=== PATIENT | male | born 1950 | race Caucasian/White ===

== ENCOUNTER → 2016-12-28 | Outpatient (CLI) | payer MEDICARE, MEDICAID | LOC: OD 10:10 | PROVIDERS: ATTEND Physician Assistant Medical | DX: R06.02 Shortness of breath (principal) | CPT/HCPCS: 71020 ==

== ENCOUNTER 2017-03-31 16:23 | Observation (INO) | payer MEDICARE, MEDICAID ==
--- NOTE | 2017-03-31 17:04 | ER Document Report ---
ED Medical Screen (RME) - General Chief Complaint: S/S of Possible Stroke Stated Complaint: LEFT ARM WEAKNESS Notes: Patient with L sided weakness that began at 1400. CT, stroke protocol ordered. TRAVEL OUTSIDE OF THE [place] IN LAST 30 DAYS: No - Related Data Allergies/Adverse Reactions: No Known Allergies Allergy (Unverified 11/24/15 08:26) Past Medical History - Past Medical History Cardiac Medical History: Reports: Hx Hypertension Endocrine Medical History: Reports: Hx Diabetes Mellitus Type 1 - controlled, Hx Diabetes Mellitus Type 2 - "pre diabetic" Renal/ Medical History: Denies: Hx Peritoneal Dialysis Review of Systems - Review of Systems Neurological/Psychological: See HPI Physical Exam - Vital signs Vitals: Temp Pulse Resp BP Pulse Ox 98.1 F 57 L 18 187/90 H 98 03/31/17 16:25 03/31/17 16:25 03/31/17 16:25 03/31/17 16:25 03/31/17 16:25 Course - Vital Signs Vital signs: Temp Pulse Resp BP Pulse Ox 98.1 F 57 L 18 187/90 H 98 03/31/17 16:25 03/31/17 16:30 03/31/17 16:30 03/31/17 16:30 03/31/17 16:30
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
--- NOTE | 2017-03-31 17:13 | RADIOLOGY REPORT (SQ) ---
EXAM DESCRIPTION: CHEST SINGLE VIEW COMPLETED DATE/TIME: 03/31/2017 4:57 pm REASON FOR STUDY: L weakness COMPARISON: Chest films 12/28/2016, 03/21/2016 EXAM PARAMETERS: NUMBER OF VIEWS: One view. TECHNIQUE: Single frontal radiographic view of the chest acquired. RADIATION DOSE: NA LIMITATIONS: None. FINDINGS: LUNGS AND PLEURA: No opacities, masses or pneumothorax. No pleural effusion. MEDIASTINUM AND HILAR STRUCTURES: No masses. Contour normal. HEART AND VASCULAR STRUCTURES: Heart normal in size. Normal vasculature. BONES: No acute findings. HARDWARE: None in the chest. OTHER: No other significant finding. IMPRESSION: NO ACUTE RADIOGRAPHIC FINDING IN THE CHEST. TECHNICAL DOCUMENTATION: JOB ID: [id number]
--- NOTE | 2017-03-31 17:56 | ER Document Report ---
ED Neuro Symptoms/Deficit - General Chief Complaint: S/S of Possible Stroke Stated Complaint: LEFT ARM WEAKNESS Time Seen by Provider: 03/31/17 17:06 Notes: Patient says that he was sitting at his computer about 1 PM today when suddenly , his left arm went limp and normal and he was unable to move it. He had to actually be trouble with the right arm and berry picker the left arm. He says that that episode lasted for about 8-10 minutes followed by about a half an hour returning to normal sensation and use of the left upper extremity. Did not involve his head or face. Did not involve his leg. Denies headache or loss of consciousness or any other neurologic symptoms. Denies any change of vision. Later this afternoon, patient had a scheduled appointment with his local perfume maker and when the patient told him about this episode, he advised the patient to come here to be rechecked further. Patient still has no return of any abnormal signs or symptoms. Patient is right-hand dominant. Has never had carpal tunnel syndrome. 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 TRAVEL OUTSIDE OF THE [place] IN LAST 30 DAYS: No - Related Data Allergies/Adverse Reactions: No Known Allergies Allergy (Unverified 11/24/15 08:26) Past Medical History - Social History Smoking Status: Unknown if Ever Smoked Cigarette use (# per day): No Family History: Reviewed & Not Pertinent Patient has suicidal ideation: No Patient has homicidal ideation: No - Past Medical History Cardiac Medical History: Reports: Hx Hypertension Neurological Medical History: Denies: Hx Cerebrovascular Accident, Hx Seizures Endocrine Medical History: Reports: Hx Diabetes Mellitus Type 1 - controlled, Hx Diabetes Mellitus Type 2 - "pre diabetic" Review of Systems - Review of Systems Notes: REVIEW OF SYSTEMS: CONSTITUTIONAL : Denies fever. EENT: Denies eye, ear, nose or mouth or throat pain or other symptoms. CARDIOVASCULAR: Denies chest pain. RESPIRATORY: Denies cough, chest congestion, or shortness of breath. GASTROINTESTINAL: Denies abdominal pain or nausea, vomiting, or diarrhea. GENITOURINARY: Denies difficulty or painful urinating, urinary frequency, blood in urine. MUSCULOSKELETAL: Denies back or neck pain. Denies joint pain or swelling. SKIN: Denies rash or skin lesions. NEUROLOGICAL: Denies LOC or altered mental status. Denies headache. See HPI. ALL OTHER SYSTEMS REVIEWED AND NEGATIVE. Physical Exam - Vital signs Vitals: Temp Pulse Resp BP Pulse Ox 98.1 F 57 L 18 187/90 H 98 03/31/17 16:25 03/31/17 16:25 03/31/17 16:25 03/31/17 16:25 03/31/17 16:25 Interpretation: Normal, Hypertensive - Mild - Notes Notes: PHYSICAL EXAMINATION: GENERAL: Well-appearing, in no acute distress. HEAD: Atraumatic, normocephalic. EYES: Pupils equal round and reactive to light, extraocular movements intact. ENT: oropharynx clear without exudates. Moist mucous membranes. NECK: Normal range of motion, supple. No bruits heard in either side of the neck. LUNGS: Breath sounds clear and equal bilaterally. HEART: Regular rate and rhythm without murmurs. ABDOMEN: Soft, nontender. No guarding or rebound. BACK: No tenderness throughout entire back. EXTREMITIES: Normal range of motion without pain. NEUROLOGICAL: Normal speech, normal gait. Normal sensory, motor, and reflex exams. Awake, alert, and oriented x3. Cranial nerves normal. PSYCH: Normal mood, normal affect. SKIN: Warm, dry, no rashes. Course - Re-evaluation Re-evalutation: 03/31/17 18:[address] Contreras, hospitalist [employer], and he will admit the patient for observation and further workup. - Vital Signs Vital signs: Temp Pulse Resp BP Pulse Ox 98.1 F 57 L 18 187/90 H 98 03/31/17 16:25 03/31/17 16:30 03/31/17 16:30 03/31/17 16:30 03/31/17 16:30 - Laboratory Result Diagrams: 03/31/17 17:54 03/31/17 17:54 - Diagnostic Test Radiology reviewed: Image reviewed, Reports reviewed - CT scan of the brain is normal. - EKG Interpretation by Wy EKG shows normal: Sinus rhythm Rate: Normal Rhythm: NSR Additional EKG results interpreted by me: 03/31/17 18:41 EKG is normal. Discharge - Discharge Clinical Impression: Transient cerebral ischemia Qualifiers: Transient cerebral ischemia type: unspecified Qualified Code(s): G45.9 - Transient cerebral ischemic attack, unspecified Condition: Stable Disposition: ADMITTED OBSERVATION Admitting Provider: Hospitalist Unit Admitted: Telemetry Referrals: EWA RANDLE DO [Primary Care Provider] - Follow up as needed
[2017-03-31 18:10] LABS: ABSOLUTE EOSINOPHILS # (AUTO) 0.1 10^3/uL (0.0-0.6); ABSOLUTE LYMPHOCYTES (AUTO) 0.5 10^3/uL (0.5-4.7); ABSOLUTE MONOCYTES (AUTO) 0.4 10^3/uL (0.1-1.4); ABSOLUTE NEUT (AUTO) 1.4 10^3/uL (1.7-8.2); BASOPHILS % (AUTO) 0.6 % (0-2); EOSINOPHILS % (AUTO) 2.5 % (0-6); HEMATOCRIT 45.7 % (37.9-51.0); HEMOGLOBIN 14.2 g/dL (13.5-17.0); HGB HCT DIFFERENCE -3.1; LYMPHOCYTES % (AUTO) 20.1 % (13-45); MEAN CORPUSCULAR HEMOGLOBIN 26.1 pg (27.0-33.4); MEAN CORPUSCULAR HGB CONC 31.2 g/dL (32.0-36.0); MEAN CORPUSCULAR VOLUME 84 fl (80-97); MONOCYTES % (AUTO) 16.6 % (3-13); RED BLOOD COUNT 5.46 10^6/uL (4.35-5.55); RED CELL DISTRIBUTION WIDTH 14.3 % (11.5-14.0); SEGMENTED NEUTROPHILS % (AUTO) 60.2 % (42-78); WHITE BLOOD COUNT 2.4 10^3/uL (4.0-10.5)
[2017-03-31 18:11] LABS: PROTHROMBIN TIME 15.7 SEC (11.4-15.4)
[2017-03-31 18:12] LABS: PARTIAL THROMBOPLASTIN TIME 28.6 SEC (23.5-35.8)
[2017-03-31 18:27] LABS: ALANINE AMINOTRANSFERASE 28 U/L (21-72); ALKALINE PHOSPHATASE 68 U/L (38-126); ANION GAP 11 (5-19); ASPARTATE AMINO TRANSFERASE 24 U/L (17-59); BILIRUBIN,DIRECT 0.4 mg/dL (0.0-0.4); BILIRUBIN,TOTAL 0.5 mg/dL (0.2-1.3); BLOOD UREA NITROGEN 25 mg/dL (7-20); CALCIUM 9.3 mg/dL (8.4-10.2); CARBON DIOXIDE 25 mmol/L (22-30); CHLORIDE 109 mmol/L (98-107); CREATINE KINASE 23 U/L (55-170); CREATININE RESULT 0.82 mg/dL (0.52-1.25); GLUCOSE 203 mg/dL (75-110); POTASSIUM 4.1 mmol/L (3.6-5.0); SODIUM 144.8 mmol/L (137-145); TOTAL PROTEIN 7.1 g/dL (6.3-8.2)
[2017-03-31 18:38] LABS: CREATINE KINASE MB 0.57 ng/mL (<4.55); TROPONIN I < 0.012 ng/mL
[2017-03-31] MEDS ORDERED: ONDANSETRON HCL INJ/PF 4 MG/2 ML SDV IV PRN (18:41)
[2017-03-31] MEDS ORDERED: ACETAMINOPHEN 650 MG SUPP.RECT PR PRN (18:41)
[2017-03-31] MEDS ORDERED: DOCUSATE SODIUM 100 MG CAPSULE PO PRN (18:41)
[2017-03-31] MEDS ORDERED: DEXTROSE 50%-WATER 25 GM/50 ML DISP.SYRIN IV PRN ×2 (18:45)
[2017-03-31] MEDS ORDERED: GLUCAGON,HUMAN RECOMB 1 MG INJ IM PRN (18:45)
[2017-03-31] MEDS ORDERED: INSULIN REG, HUMAN 100 UNIT/ML 3 ML VIAL (PYX) SUBCUT PRN (18:45)
[2017-03-31] MEDS ORDERED: DEXTROSE 40% GEL 15 GM TUBE PO PRN ×2 (18:45)
[2017-03-31] MEDS ORDERED: METFORMIN HCL 500 MG TABLET PO PRN (18:46)
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
--- NOTE | 2017-03-31 19:19 | RADIOLOGY REPORT (SQ) ---
EXAM DESCRIPTION: CT CERVICAL SPINE WITHOUT COMPLETED DATE/TIME: 03/31/2017 6:58 pm REASON FOR STUDY: Left upper extremity weakness COMPARISON: None. TECHNIQUE: Axial images acquired through the cervical spine without intravenous contrast. Images re viewed with lung, soft tissue and bone windows. Reconstructed coronal and sagittal MPR images review ed. Images stored on PACS. All CT scanners at this facility use dose modulation, iterative reconstruction, and/or weight based d osing when appropriate to reduce radiation dose to as low as reasonably achievable (ALARA). [facility]: Dose Right [facility]: CareDose [facility]: Dose Right [facility]: Teradose 4D [facility]: Spock RADIATION DOSE: 15.85 mGy. LIMITATIONS: None. FINDINGS: ALIGNMENT: Anatomic. MINERALIZATION: Normal. VERTEBRAL BODIES: No fractures or dislocation. DISCS: Multilevel disc space narrowing with osteophytes. FACETS, LATERAL MASSES, POSTERIOR ELEMENTS: Facet arthropathy. No fractures. No dislocation. No ac marilyn findings. HARDWARE: None in the spine. VISUALIZED RIBS: No fractures. LUNG APICES AND SOFT TISSUES: No significant or acute findings. OTHER: No other significant finding. IMPRESSION: CHRONIC DEGENERATIVE CHANGES. NO ACUTE FINDINGS. TECHNICAL DOCUMENTATION: JOB ID: [id number] Quality ID # [id number]: Final reports with documentation of one or more dose reduction techniques (e.g., Au tomated exposure control, adjustment of the mA and/or kV according to patient size, use of iterative reconstruction technique) 2010 [employer]- All Rights Reserved
--- NOTE | 2017-03-31 22:29 | EKG REPORT ---
SEVERITY:- NORMAL ECG - SINUS RHYTHM : Confirmed by: Jun Guzman 31-Mar-2017 22:27:45
[2017-04-01 06:07] LABS: ABSOLUTE BASOPHILS # (AUTO) 0.1 10^3/uL (0.0-0.2); ABSOLUTE EOSINOPHILS # (AUTO) 0.1 10^3/uL (0.0-0.6); ABSOLUTE LYMPHOCYTES (AUTO) 0.5 10^3/uL (0.5-4.7); ABSOLUTE MONOCYTES (AUTO) 0.4 10^3/uL (0.1-1.4); ABSOLUTE NEUT (AUTO) 1.5 10^3/uL (1.7-8.2); BASOPHILS % (AUTO) 2.8 % (0-2); EOSINOPHILS % (AUTO) 3.7 % (0-6); HEMOGLOBIN 14.2 g/dL (13.5-17.0); HGB HCT DIFFERENCE -2.4; LYMPHOCYTES % (AUTO) 20.3 % (13-45); MEAN CORPUSCULAR HEMOGLOBIN 26.3 pg (27.0-33.4); MEAN CORPUSCULAR HGB CONC 31.5 g/dL (32.0-36.0); MEAN CORPUSCULAR VOLUME 84 fl (80-97); MONOCYTES % (AUTO) 14.6 % (3-13); RED BLOOD COUNT 5.39 10^6/uL (4.35-5.55); RED CELL DISTRIBUTION WIDTH 14.3 % (11.5-14.0); SEGMENTED NEUTROPHILS % (AUTO) 58.6 % (42-78); WHITE BLOOD COUNT 2.6 10^3/uL (4.0-10.5)
[2017-04-01 06:14] LABS: CHOLESTEROL 123.17 mg/dL (0-200); Direct HDL 38 mg/dL (>40); TRIGLYCERIDES 51 mg/dL (<150)
[2017-04-01 06:25] LABS: DIRECT LDL 73 mg/dL (<100)
[2017-04-01] MEDS ORDERED: FONDAPARINUX SODIUM INJ 2.5 MG/0.5 ML DISP.SYRIN SUBCUT SCH (08:00)
[2017-04-01] MEDS ORDERED: PROPRANOLOL HCL 20 MG TABLET PO SCH (10:00)
[2017-04-01] MEDS ORDERED: LISINOPRIL 10 MG TABLET PO SCH (10:00)
[2017-04-01] MEDS ORDERED: ASPIRIN 81 MG TABLET, ENT COATED PO SCH (10:00)
[2017-04-01 13:19] VITALS: BP 161/74
--- NOTE | 2017-04-01 15:43 | PDOC DISCHARGE SUMMARY ---
General - Admit/Disc Date/PCP Admission Date/Primary Care Provider: 03/31/17 18:41 EWA RANDLE, Discharge Date: 04/01/17 - Discharge Diagnosis (1) TIA (transient ischemic attack) Is this a current diagnosis for this admission?: Yes (2) Diabetes mellitus Is this a current diagnosis for this admission?: Yes (3) Hypertension Is this a current diagnosis for this admission?: Yes (4) Liver cirrhosis Is this a current diagnosis for this admission?: Yes (5) Hepatitis C Is this a current diagnosis for this admission?: Yes (6) Chronic neck pain Is this a current diagnosis for this admission?: Yes (7) History of Lucas's palsy Is this a current diagnosis for this admission?: Yes - Additional Information Resuscitation Status: Full Code Discharge Diet: Cardiac - low fat, low salt, Diabetic - no concentrated sweets Discharge Activity: Activity As Tolerated, Balance Activity w/Rest Home Medications: Budesonide/Formoterol Fumarate [Symbicort HFA 80-4.5 mcg Inhaler 6.9 gm] 2 puff IH Q12HP PRN 03/31/17 Lisinopril [Prinivil 10 mg Tablet] 10 mg PO DAILY 03/31/17 Metformin HCl [Glucophage] 500 mg PO DAILY 03/31/17 Aspirin [Ecotrin 81 mg EC Tablet] 81 mg PO DAILY tabec 04/01/17 Propranolol HCl [Inderal 20 mg Tablet] 40 mg PO BID #60 tablet 04/01/17 History of Present Illness Patient complains of: LUE weakness History of Present Illness: ANTHONY RAUSCH is a 66 year old male with history of diabetes and hypertension presents to the emergency room because of left upper extremity weakness while working on a computer earlier today that lasted only for 8-10 minutes. No associated swallowing difficulty, slurring of speech, or left lower extremity weakness. There was no doubling of vision noted as well. There is no headache. Patient reports that she has chronic pain in the neck that he goes to a chiropractor and had a recent manipulation done. Symptoms resolved and completely asymptomatic at this time in terms of the weakness. He did have a carotid Doppler and 2D echocardiogram with his burlapper a few weeks ago. Hospital Course Hospital Course: The patient was admitted to telemetry. The patient was started on aspirin. Supplemental oxygen was given. The patient's symptomatologies has already resolved. Patient underwent cervical spine CT showing no acute abnormality or any cord impingement. Patient had a recent echocardiogram showing no significant valvular defect done at Dr. Guzman's office a few weeks ago. Likewise he also has carotid Doppler which did not reveal any hemodynamically significant stenosis. Patient recommended to be on aspirin. Risk and benefits were explained including risk of bleeding as well as risk of stroke with history of diabetes and hypertension. He was likewise educated about blood pressure control. He was on propranolol in the past and this was resumed. He was advised to follow-up with his primary care physician and burlapper. Physical Exam Vital Signs: Temp Pulse Resp BP Pulse Ox 97.9 F 55 L 18 178/86 H 99 04/01/17 11:56 04/01/17 11:56 04/01/17 11:56 04/01/17 11:56 04/01/17 11:56 Intake & Output 03/31/17 04/01/17 04/02/17 06:59 06:59 06:59 Intake Total 210 190 Output Total 2 Balance 210 188 Weight 73.2 kg General appearance: PRESENT: no acute distress, cooperative Head exam: PRESENT: normocephalic Eye exam: PRESENT: EOMI Mouth exam: PRESENT: moist, neck supple Neck exam: ABSENT: JVD Respiratory exam: PRESENT: clear to auscultation penny Cardiovascular exam: PRESENT: RRR. ABSENT: gallop GI/Abdominal exam: PRESENT: normal bowel sounds, soft. ABSENT: diminished bowel sounds, tenderness Extremities exam: ABSENT: pedal edema Neurological exam: PRESENT: alert, awake, oriented to person, oriented to place , oriented to time, oriented to situation Skin exam: PRESENT: dry, warm. ABSENT: cyanosis Results Laboratory Results: 04/01/17 05:22 04/01/17 04/01/17 05:22 05:22 WBC 2.6 L RBC 5.39 Hgb 14.2 Hct 45.0 MCV 84 MCH 26.3 L MCHC 31.5 L RDW 14.3 H Plt Count 104 L Seg Neutrophils % 58.6 Lymphocytes % 20.3 Monocytes % 14.6 H Eosinophils % 3.7 Basophils % 2.8 H Absolute Neutrophils 1.5 L Absolute Lymphocytes 0.5 Absolute Monocytes 0.4 Absolute Eosinophils 0.1 Absolute Basophils 0.1 Triglycerides 51 Cholesterol 123.17 LDL Cholesterol Direct 73 VLDL Cholesterol 10.0 HDL Cholesterol 38 L Impressions: Cervical Spine CT 03/31/17 00:00 IMPRESSION: CHRONIC DEGENERATIVE CHANGES. NO ACUTE FINDINGS. Chest X-Ray 03/31/17 16:41 IMPRESSION: NO ACUTE RADIOGRAPHIC FINDING IN THE CHEST. Head CT 03/31/17 16:41 IMPRESSION: NORMAL BRAIN CT WITHOUT CONTRAST. Qualifiers PATEINT BEING DISCHARGED WITH ANY OF THE FOLLOWING DIAGNOSIS?: No Plan Discharge Plan: Follow-up with primary care physician in 1 week. Follow-up with Dr. Guzman in 1- 2 weeks. Time Spent: Less than 30 Minutes
== END 2017-04-01 14:00 | disposition home or self-care (01) ==
LOC: ER 16:23 → EH 18:41 → UNDOADMOB 18:50 → 3S 21:26
DX: G45.9 Transient cerebral ischemic attack, unspecified (principal); E11.9 Type 2 diabetes mellitus without complications; I10 Essential (primary) hypertension; K74.60 Unspecified cirrhosis of liver; B19.20 Unspecified viral hepatitis C without hepatic coma; G89.29 Other chronic pain; M54.2 Cervicalgia; Z86.69 Personal history of other diseases of the nervous system and sense organs; Z79.84 Long term (current) use of oral hypoglycemic drugs; Z79.82 Long term (current) use of aspirin; Z79.899 Other long term (current) drug therapy; Z96.89 Presence of other specified functional implants; Z79.51 Long term (current) use of inhaled steroids
CPT/HCPCS: 93005; 99285; 36415 ×2; 82553; 82962 ×2; 82550; 85025 ×2; 85610; 85730; 80053; 84484; 83036; 80061; 71010; 70450; 72125; 93010; G0378 ×3; A9270 ×4; J3490; J1815

== ENCOUNTER → 2017-06-28 | Outpatient (CLI) | payer MEDICARE, MEDICAID ==
--- NOTE | 2017-06-28 11:52 | RADIOLOGY REPORT (SQ) ---
EXAM DESCRIPTION: U/S ABDOMEN LIMITED W/O DOP COMPLETED DATE/TIME: 06/28/2017 10:11 am REASON FOR STUDY: CHRONIC VIRAL HEPATITIS C B18.2 CHRONIC VIRAL HEPATITIS C K74.60 UNSPECIFIED CIR RHOSIS OF LIVER COMPARISON: None. TECHNIQUE: Dynamic and static grayscale images acquired of the abdomen and recorded on PACS. Additio nal selected color Doppler and spectral images recorded. LIMITATIONS: Midline bowel gas FINDINGS: PANCREAS: Midline pancreas is unremarkable. LIVER: No masses. Echotexture normal. LIVER VASCULATURE: Normal directional flow of the main portal vein and hepatic veins. GALLBLADDER: Tiny stones in the gallbladder fundus. No gallbladder wall thickening or pericholecysti c fluid ULTRASOUND-DETECTED ADKINS'S SIGN: Negative. INTRAHEPATIC DUCTS AND COMMON DUCT: CBD and intrahepatic ducts normal caliber. No filling defects. INFERIOR VENA CAVA: Normal flow. AORTA: No aneurysm. RIGHT KIDNEY: Normal size. Normal echogenicity. No solid or suspicious masses. 3 cm cyst right mid- pole kidney. No hydronephrosis. No calcifications. PERITONEAL AND RIGHT PLEURAL SPACE: No ascites or effusions. OTHER: No other significant findings. IMPRESSION: Tiny stones in the gallbladder without gallbladder wall thickening or pericholecystic fl uid. No biliary ductal dilatation. TECHNICAL DOCUMENTATION: JOB ID: [id number] [employer]- All Rights Reserved
== END ==
LOC: RAD 09:30
PROVIDERS: ATTEND Internal Medicine Gastroenterology
DX: B18.2 Chronic viral hepatitis C (principal); K74.60 Unspecified cirrhosis of liver
CPT/HCPCS: 76705

== ENCOUNTER 2017-11-20 16:03 | Emergency (ER) | payer MEDICARE, MEDICAID ==
--- NOTE | 2017-11-20 17:34 | ER Document Report ---
ED Medical Screen (RME) - General Chief Complaint: Flu Symptoms Stated Complaint: FLU LIKE SYMPTOMS Time Seen by Provider: 11/20/17 17:29 TRAVEL OUTSIDE OF THE [place] IN LAST 30 DAYS: No - HPI Notes: 11/20/17 17:29 Patient is a 67-year-old male with a history of cirrhosis, hypertension, TIA last year who presents to the ED complaining of generalized weakness, episodes of confusion, dizziness when ambulating, intermittent nausea without vomiting 1 week. Pt has also had an occ SALAS, none currently. Patient states that he has not been running any fevers, nor has he had any cough or congestion. Patient states that there were a couple occasions where he felt like he was going to pass out today. He denies any significant cardiac history otherwise and is not on any blood thinners. Denies any drug allergies. Denies any fever, head injury, neck pain, changes in vision/speech, URI, sore throat, chest pain, palpitations, cough, shortness of breath, wheeze, dyspnea, abdominal pain, vomiting/diarrhea, urinary retention, dysuria, hematuria, loss of control of bowel or bladder, numbness/tingling, muscle paralysis, or rash. I have treated and performed a rapid initial assessment of this patient. A comprehensive ED assessment and evaluation of the patient, analysis of test results and completion of medical decision making process will be conducted by additional ED providers. - Related Data Allergies/Adverse Reactions: No Known Allergies Allergy (Verified 11/20/17 16:04) Past Medical History - Past Medical History Cardiac Medical History: Reports: Hx Hypertension Neurological Medical History: Denies: Hx Cerebrovascular Accident, Hx Seizures Endocrine Medical History: Reports: Hx Diabetes Mellitus Type 1 - controlled, Hx Diabetes Mellitus Type 2 - "pre diabetic" Renal/ Medical History: Denies: Hx Peritoneal Dialysis Psychiatric Medical History: Denies: Hx Depression Physical Exam - Vital signs Vitals: Temp Pulse Resp BP Pulse Ox 98.4 F 60 14 156/86 H 100 11/20/17 16:11 11/20/17 16:11 11/20/17 16:11 11/20/17 16:11 11/20/17 16:11 - Respiratory Respiratory status: No respiratory distress Breath sounds: Normal - Cardiovascular Rhythm: Regular Heart sounds: Normal auscultation Course - Vital Signs Vital signs: Temp Pulse Resp BP Pulse Ox 98.4 F 60 14 156/86 H 100 11/20/17 16:11 11/20/17 16:11 11/20/17 16:11 11/20/17 16:11 11/20/17 16:11
--- NOTE | 2017-11-20 17:59 | EKG REPORT ---
SEVERITY:- OTHERWISE NORMAL ECG - SINUS RHYTHM LOW VOLTAGE IN FRONTAL LEADS : Confirmed by: Vimal Green MD 20-Nov-2017 17:58:18
[2017-11-20 18:07] LABS: A TYPE INFLUENZA AG NEGATIVE (NEGATIVE); B INFLUENZA AG NEGATIVE (NEGATIVE)
[2017-11-20 18:20] LABS: ABSOLUTE EOSINOPHILS # (AUTO) 0.1 10^3/uL (0.0-0.6); ABSOLUTE LYMPHOCYTES (AUTO) 0.4 10^3/uL (0.5-4.7); ABSOLUTE MONOCYTES (AUTO) 0.4 10^3/uL (0.1-1.4); ABSOLUTE NEUT (AUTO) 1.5 10^3/uL (1.7-8.2); BASOPHILS % (AUTO) 0.8 % (0-2); EOSINOPHILS % (AUTO) 3.6 % (0-6); HEMATOCRIT 43.7 % (37.9-51.0); LYMPHOCYTES % (AUTO) 17.2 % (13-45); MEAN CORPUSCULAR HEMOGLOBIN 26.6 pg (27.0-33.4); MEAN CORPUSCULAR HGB CONC 32.1 g/dL (32.0-36.0); MEAN CORPUSCULAR VOLUME 83 fl (80-97); MONOCYTES % (AUTO) 17.2 % (3-13); PLATELET COUNT 112 10^3/uL (150-450); RED BLOOD COUNT 5.28 10^6/uL (4.35-5.55); SEGMENTED NEUTROPHILS % (AUTO) 61.2 % (42-78); TOTAL CELLS COUNTED % (AUTO) 100 %; WHITE BLOOD COUNT 2.4 10^3/uL (4.0-10.5)
[2017-11-20 18:38] LABS: ALANINE AMINOTRANSFERASE 31 U/L (21-72); ALBUMIN 4.4 g/dL (3.5-5.0); ALKALINE PHOSPHATASE 63 U/L (38-126); ANION GAP 12 (5-19); ASPARTATE AMINO TRANSFERASE 24 U/L (17-59); BILIRUBIN,DIRECT 0.2 mg/dL (0.0-0.4); BILIRUBIN,TOTAL 0.5 mg/dL (0.2-1.3); BLOOD UREA NITROGEN 21 mg/dL (7-20); CALCIUM 9.8 mg/dL (8.4-10.2); CARBON DIOXIDE 26 mmol/L (22-30); CHLORIDE 107 mmol/L (98-107); CREATINE KINASE 42 U/L (55-170); GLUCOSE 225 mg/dL (75-110); POTASSIUM 4.1 mmol/L (3.6-5.0); SODIUM 144.8 mmol/L (137-145); TOTAL PROTEIN 7.3 g/dL (6.3-8.2)
[2017-11-20] MEDS ORDERED: NORMAL SALINE 1000 ML 1,000 ML IV PRN (18:53)
[2017-11-20 18:56] LABS: CREATINE KINASE MB 0.74 ng/mL (<4.55)
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
[2017-11-20 18:58] LABS: TROPONIN I < 0.012 ng/mL
--- NOTE | 2017-11-20 19:06 | RADIOLOGY REPORT (SQ) ---
EXAM DESCRIPTION: CHEST SINGLE VIEW COMPLETED DATE/TIME: 11/20/2017 6:31 pm REASON FOR STUDY: weakness COMPARISON: AP chest 03/31/2017, 12/28/2016 EXAM PARAMETERS: NUMBER OF VIEWS: One view. TECHNIQUE: Single frontal radiographic view of the chest acquired. RADIATION DOSE: NA LIMITATIONS: None. FINDINGS: LUNGS AND PLEURA: No opacities, masses or pneumothorax. No pleural effusion. MEDIASTINUM AND HILAR STRUCTURES: No masses. Contour normal. HEART AND VASCULAR STRUCTURES: Heart normal in size. Normal vasculature. BONES: No acute findings. HARDWARE: None in the chest. OTHER: No other significant finding. IMPRESSION: NO ACUTE RADIOGRAPHIC FINDING IN THE CHEST. TECHNICAL DOCUMENTATION: JOB ID: [id number] [employer]- All Rights Reserved
[2017-11-20 19:24] LABS: APPEARANCE,URINE CLEAR; BILIRUBIN,URINE NEGATIVE (NEGATIVE); COLOR,URINE YELLOW; GLUCOSE, URINE 150 mg/dL (NEGATIVE); KETONES,URINE NEGATIVE (NEGATIVE); LEUKOCYTE ESTERASE,URINE NEGATIVE (NEGATIVE); NITRITE,URINE NEGATIVE (NEGATIVE); PROTEIN,URINE NEGATIVE (NEGATIVE); URINE SPECIFIC GRAVITY 1.026
[2017-11-20 21:24] VITALS: BP 172/83
== END 2017-11-20 21:20 | disposition home or self-care (01) ==
LOC: ER 16:03
DX: B34.9 Viral infection, unspecified (principal); R53.1 Weakness; E11.9 Type 2 diabetes mellitus without complications; I10 Essential (primary) hypertension; B19.20 Unspecified viral hepatitis C without hepatic coma; R05 Cough; R42 Dizziness and giddiness; R11.0 Nausea; Z87.820 Personal history of traumatic brain injury
CPT/HCPCS: 93005; 99284; 96360; 36415; 82553; 82550; 85025; 80053; 81001; 84484; 87804; 71045; 93010; J7030

== ENCOUNTER 2018-09-04 08:11 | Emergency (ER) | payer MEDICARE, MEDICAID ==
[2018-09-04 08:21] VITALS: BP 166/85
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
--- NOTE | 2018-09-04 09:26 | RADIOLOGY REPORT (SQ) ---
EXAM DESCRIPTION: TIBIA FIBULA LEFT COMPLETED DATE/TIME: 09/04/2018 8:55 am REASON FOR STUDY: left distal tibia pain s/p injury, + hematoma COMPARISON: None. NUMBER OF VIEWS: Two views. TECHNIQUE: Two radiographic images acquired of the left tibia and fibula to include the knee and ank le in at least one projection. LIMITATIONS: None. FINDINGS: MINERALIZATION: Normal. BONES: No acute fracture or dislocation. No worrisome bone lesions. SOFT TISSUES: No obvious swelling or foreign body. OTHER: No other significant finding. IMPRESSION: NEGATIVE STUDY OF THE LEFT TIBIA AND FIBULA. NO RADIOGRAPHIC EVIDENCE OF ACUTE INJURY. TECHNICAL DOCUMENTATION: JOB ID: [id number] [employer]- All Rights Reserved Reading location - IP/workstation name: [email or web address]
== END 2018-09-04 10:06 | disposition home or self-care (01) ==
LOC: ER 08:11
DX: M79.605 Pain in left leg (principal); W01.10XA Fall on same level from slipping, tripping and stumbling with subsequent striking against unspecified object, initial encounter; I10 Essential (primary) hypertension; E10.9 Type 1 diabetes mellitus without complications
CPT/HCPCS: 99283

== ENCOUNTER → 2018-09-22 | Outpatient (CLI) | payer MEDICARE, MEDICAID ==
--- NOTE | 2018-09-22 17:13 | RADIOLOGY REPORT (SQ) ---
EXAM DESCRIPTION: ELBW BILATERAL 2 VIEWS MIN COMPLETED DATE/TIME: 09/22/2018 5:02 pm REASON FOR STUDY: CHRONIC PAIN OF BILATERAL ELBOW M25.521 PAIN IN RIGHT ELBOW M25.522 PAIN IN LEFT ELBOW COMPARISON: None. NUMBER OF VIEWS: Four views. TECHNIQUE: AP, lateral, and both oblique radiographic images acquired of the right and left elbow. LIMITATIONS: None. FINDINGS: MINERALIZATION: Normal. BONES: No acute fracture or dislocation. No worrisome bone lesions. JOINT: No effusion. SOFT TISSUES: No soft tissue swelling. No foreign body. OTHER: No other significant finding. IMPRESSION: 1. No acute osseous findings. TECHNICAL DOCUMENTATION: JOB ID: [id number] [email or web address]- All Rights Reserved Reading location - IP/workstation name: [email or web address]
== END ==
LOC: OD 16:42
PROVIDERS: ATTEND Family Medicine
DX: M25.521 Pain in right elbow (principal); M25.522 Pain in left elbow

== ENCOUNTER → 2018-10-19 | Outpatient (CLI) | payer MEDICARE, MEDICAID ==
--- NOTE | 2018-10-19 09:39 | RADIOLOGY REPORT (SQ) ---
EXAM DESCRIPTION: U/S ABDOMEN LIMITED W/O DOP COMPLETED DATE/TIME: 10/19/2018 9:19 am REASON FOR STUDY: CHRONIC VIRAL HEPATITIS C B18.2 CHRONIC VIRAL HEPATITIS C K74.60 UNSPECIFIED CIR RHOSIS OF LIVER COMPARISON: 06/28/2017 TECHNIQUE: Dynamic and static grayscale images acquired of the abdomen and recorded on PACS. Additio nal selected color Doppler and spectral images recorded. LIMITATIONS: None. FINDINGS: PANCREAS: No masses. Visualized pancreatic duct normal caliber. LIVER: No masses. Echotexture normal. LIVER VASCULATURE: Normal directional flow of the main portal vein and hepatic veins. GALLBLADDER: Dependent gallstones. No gallbladder wall thickening (2 mm) or pericholecystic fluid. ULTRASOUND-DETECTED ADKINS'S SIGN: Negative. INTRAHEPATIC DUCTS AND COMMON DUCT: CBD and intrahepatic ducts normal caliber. No filling defects. INFERIOR VENA CAVA: Normal flow. AORTA: Mild ectasia of the abdominal aorta measuring up to 2.9 cm maximally. Scattered atheroscleros is. RIGHT KIDNEY: Normal size measuring 11.0 cm. No focal solid mass lesion. 3.0 cm upper pole cyst. No hydronephrosis or nephrolithiasis. PERITONEAL AND RIGHT PLEURAL SPACE: No ascites or effusions. OTHER: No other significant findings. IMPRESSION: 1. Cholelithiasis without secondary evidence of acute cholecystitis. 2. Mild ectasia of the abdominal aorta measuring up to 2.9 cm. See follow-up as below. COMMENT: AAA Size: Follow-up Recommendation 2.6-2.9 cm Every 5 years* *Based upon the Society for Vascular Surgery Guidelines: J Vasc Surg. 2009 Jul;50(4 Suppl):S2-49 *For aortas of maximum diameter of 2.6-2.9 cm meeting the criteria for AAA (?1.5 x proximal normal se gment) TECHNICAL DOCUMENTATION: JOB ID: [id number] [employer]- All Rights Reserved Reading location - IP/workstation name: [email or web address]
== END ==
LOC: RAD 08:27
PROVIDERS: ATTEND Internal Medicine Gastroenterology
DX: B18.2 Chronic viral hepatitis C (principal); K74.60 Unspecified cirrhosis of liver; K80.20 Calculus of gallbladder without cholecystitis without obstruction
CPT/HCPCS: 76705

== ENCOUNTER 2018-11-21 15:50 | Day surgery (SDC) | payer MEDICARE, MEDICAID ==
[~2018-11-21 15:50] MED LIST: DIPHENHYDRAMINE HCL 50 MG/ML VIAL ONE; EPINEPHRINE INJ 1 MG/10 ML DISP.SYRIN ONE; FENTANYL CITRATE INJ/PF 100 MCG/2 ML AMPUL ONE; FLUMAZENIL INJ 0.5 MG/5 ML VIAL ONE; GLUCAGON,HUMAN RECOMB 1 MG INJ ONE; NALOXONE HCL INJ/PF 0.4 MG/1 ML SDV ONE; ONDANSETRON HCL INJ/PF 4 MG/2 ML SDV ONE
[2018-11-21] MEDS: MIDAZOLAM 2 MG/2 ML INJ ONE ×2 (16:17→16:22)
--- NOTE | 2018-11-21 16:44 | Operative Report ---
Operative Report DATE OF SURGERY: 11/21/18 Operative Report: Pre-op diagnosis: History of esophageal varices intolerance to H2 blockers Post-op diagnosis: 1. Antral gastritis 2. Large esophageal varices Surgery: Esophagogastroduodenoscopy with biopsy and variceal rubber banding Medications: Versed 3mg Fentanyl 100mcg IV push Tissue removed: Antral and gastric body biopsy for pathology Procedure: After informed consent obtained from patient, the throat was sprayed with Hurricane and conscious sedation was achieved. The upper endoscope was inserted into the esophagus under direct vision and advanced into the stomach. The duodenum was entered and examined to the second part. Endoscope was then slowly pulled out of the patient as the mucosa was examined into details. Patient tolerated procedure well. Findings Esophagus: There was 3 columns of large varices noted in the distal third of the esophagus. There was no evidence for recent bleeding. 5 rubber bands were then placed over these varices. Z-line at: 42 cm Antrum: Moderate erythema Body: Mild erythema Fundus: Normal Duodenum first part: Normal Duodenum second part: Normal Plan: Await pathology. Start omeprazole, Carafate, and Viscous Lidocaine. Repeat EGD with banding in 3-4 weeks OPERATION: .
[2018-11-21 18:23] VITALS: BP 151/82
== END 2018-11-21 18:00 | disposition home or self-care (01) ==
LOC: END 15:50
PROVIDERS: ATTEND Internal Medicine Gastroenterology
DX: I85.00 Esophageal varices without bleeding (principal); K29.50 Unspecified chronic gastritis without bleeding; K76.6 Portal hypertension; K80.20 Calculus of gallbladder without cholecystitis without obstruction; B19.20 Unspecified viral hepatitis C without hepatic coma; E11.9 Type 2 diabetes mellitus without complications; Z85.820 Personal history of malignant melanoma of skin; Z85.828 Personal history of other malignant neoplasm of skin; Z79.84 Long term (current) use of oral hypoglycemic drugs; Z79.899 Other long term (current) drug therapy; K70.31 Alcoholic cirrhosis of liver with ascites
CPT/HCPCS: 43239; 43244; 82962; 88342 ×2; 88305 ×2; J2250; J3010; J0171; J1200; J1610; J2310; J2405; J3490

== ENCOUNTER 2018-12-19 15:31 | Day surgery (SDC) | payer MEDICARE, MEDICAID ==
[2018-12-19] MEDS ORDERED: ONDANSETRON HCL INJ/PF 4 MG/2 ML SDV ONE (15:42)
[2018-12-19] MEDS ORDERED: DIPHENHYDRAMINE HCL 50 MG/ML VIAL ONE (15:42)
[2018-12-19] MEDS ORDERED: EPINEPHRINE INJ 1 MG/10 ML DISP.SYRIN ONE (15:42)
[2018-12-19] MEDS ORDERED: FENTANYL CITRATE INJ/PF 100 MCG/2 ML AMPUL ONE (15:42)
[2018-12-19] MEDS ORDERED: FLUMAZENIL INJ 0.5 MG/5 ML VIAL ONE (15:42)
[2018-12-19] MEDS ORDERED: NALOXONE HCL INJ/PF 0.4 MG/1 ML SDV ONE (15:42)
[2018-12-19] MEDS ORDERED: MIDAZOLAM 2 MG/2 ML INJ ONE (15:42)
[2018-12-19] MEDS ORDERED: GLUCAGON,HUMAN RECOMB 1 MG INJ ONE (15:43)
--- NOTE | 2018-12-19 17:35 | Operative Report ---
Operative Report DATE OF SURGERY: 12/19/18 Operative Report: Pre-op diagnosis: Cirrhosis with history of esophageal varices Post-op diagnosis: 1. Antral gastritis 2. Esophageal varices Surgery: Esophagogastroduodenoscopy with biopsy and variceal rubber banding Medications: Versed 2mg Fentanyl 100mcg IV push Tissue removed: Antral biopsy for pathology Procedure: After informed consent obtained from patient, the throat was sprayed with Hurricane and conscious sedation was achieved. The upper endoscope was inserted into the esophagus under direct vision and advanced into the stomach. The duodenum was entered and examined to the second part. Endoscope was then slowly pulled out of the patient as the mucosa was examined into details. Patient tolerated procedure well. Findings Esophagus: Small varices were noted in the distal third of the esophagus with areas of scarring. 5 rubber bands were applied Antrum: Mild erythema Body: Normal Fundus: Normal Duodenum first part: Normal Duodenum second part: Normal Plan: Await pathology. Omeprazole 20 mg daily. Carafate and Viscous Lidocaine. Repeat EGD in 6 months OPERATION: .
[2018-12-19 18:25] LABS: HEMATOCRIT 41.5 % (37.9-51.0); HEMOGLOBIN 13.6 g/dL (13.5-17.0); MEAN CORPUSCULAR HEMOGLOBIN 26.9 pg (27.0-33.4); MEAN CORPUSCULAR HGB CONC 32.7 g/dL (32.0-36.0); MEAN CORPUSCULAR VOLUME 82 fl (80-97); PLATELET COUNT 103 10^3/uL (150-450); RED BLOOD COUNT 5.05 10^6/uL (4.35-5.55); RED CELL DISTRIBUTION WIDTH 14.5 % (11.5-14.0); WHITE BLOOD COUNT 2.1 10^3/uL (4.0-10.5)
[2018-12-19 18:29] LABS: INTERNATIONAL RATION (INR) 1.22; PROTHROMBIN TIME 16.1 SEC (11.4-15.4)
[2018-12-19 18:35] VITALS: BP 172/82
[2018-12-19 19:02] LABS: ALANINE AMINOTRANSFERASE 27 U/L (21-72); ALBUMIN 4.2 g/dL (3.5-5.0); ALKALINE PHOSPHATASE 52 U/L (38-126); ANION GAP 8 (5-19); ASPARTATE AMINO TRANSFERASE 27 U/L (17-59); BILIRUBIN,DIRECT 0.3 mg/dL (0.0-0.4); BILIRUBIN,TOTAL 1.2 mg/dL (0.2-1.3); BLOOD UREA NITROGEN 17 mg/dL (7-20); CALCIUM 9.1 mg/dL (8.4-10.2); CARBON DIOXIDE 28 mmol/L (22-30); CHLORIDE 106 mmol/L (98-107); GLUCOSE 92 mg/dL (75-110); POTASSIUM 4.1 mmol/L (3.6-5.0); SODIUM 142.2 mmol/L (137-145); TOTAL PROTEIN 6.8 g/dL (6.3-8.2)
== END 2018-12-19 18:25 | disposition home or self-care (01) ==
LOC: END 15:31
PROVIDERS: ATTEND Internal Medicine Gastroenterology
DX: I85.00 Esophageal varices without bleeding (principal); K29.70 Gastritis, unspecified, without bleeding
CPT/HCPCS: 43239; 43244; 36415; 82962; 85027; 85610; 80076; 80048; 88342 ×2; 88305 ×2; J2250; J3010; J0171; J1200; J1610; J2310; J2405; J3490

== ENCOUNTER 2019-01-11 08:21 | Observation (INO) | payer MEDICARE, MEDICAID ==
[2019-01-11] MEDS ORDERED: ASPIRIN 81 MG TABLET, CHEWABLE PO ONE (08:27)
[2019-01-11 09:13] LABS: HEMATOCRIT 41.7 % (37.9-51.0); HEMOGLOBIN 13.7 g/dL (13.5-17.0); MEAN CORPUSCULAR HEMOGLOBIN 26.7 pg (27.0-33.4); MEAN CORPUSCULAR HGB CONC 32.8 g/dL (32.0-36.0); MEAN CORPUSCULAR VOLUME 81 fl (80-97); PLATELET COUNT 105 10^3/uL (150-450); RED BLOOD COUNT 5.13 10^6/uL (4.35-5.55); RED CELL DISTRIBUTION WIDTH 14.6 % (11.5-14.0)
[2019-01-11 09:42] LABS: ALANINE AMINOTRANSFERASE 33 U/L (21-72); ALBUMIN 3.7 g/dL (3.5-5.0); ALKALINE PHOSPHATASE 59 U/L (38-126); ANION GAP 7 (5-19); ASPARTATE AMINO TRANSFERASE 25 U/L (17-59); BILIRUBIN,DIRECT 0.1 mg/dL (0.0-0.4); BLOOD UREA NITROGEN 23 mg/dL (7-20); CALCIUM 9.2 mg/dL (8.4-10.2); CARBON DIOXIDE 28 mmol/L (22-30); CHLORIDE 107 mmol/L (98-107); CREATINE KINASE 29 U/L (55-170); GLUCOSE 108 mg/dL (75-110); LIPASE 80.2 U/L (23-300); TOTAL PROTEIN 6.6 g/dL (6.3-8.2)
[2019-01-11 09:49] LABS: ABSOLUTE LYMPHOCYTES# (MANUAL) 0.6 10^3/uL (0.5-4.7); ABSOLUTE MONOCYTES # (MANUAL) 0.2 10^3/uL (0.1-1.4); ABSOLUTE NEUTROPHILS# (MANUAL) 1.2 10^3/uL (1.7-8.2); BASOPHILS % (MANUAL) 0 % (0-2); EOSINOPHILS % (MANUAL) 0 % (0-6); LYMPHOCYTES % (MANUAL) 28 % (13-45); MONOCYTES % (MANUAL) 12 % (3-13); SEGMENTED NEUTROPHILS % (MAN) 60 % (42-78); TOTAL CELLS COUNTED 50
[2019-01-11 09:50] LABS: ANISOCYTOSIS SLIGHT; OVALOCYTES 1+; PLATELET COMMENT DECREASED; POIKILOCYTOSIS 1+; POLYCHROMASIA SLIGHT
[2019-01-11 10:05] LABS: CREATINE KINASE MB 0.97 ng/mL (<4.55)
[2019-01-11] MEDS ORDERED: NORMAL SALINE 1000 ML 1,000 ML IV ONE (10:08)
[2019-01-11 10:12] LABS: TROPONIN I < 0.012 ng/mL
[2019-01-11 10:14] LABS: VENOUS BLOOD BASE EXCESS 1.9 mmol/L; VENOUS BLOOD HCO3 25.7 mmol/L (20-32); VENOUS BLOOD PCO2 37.6 mmHg (35-63); VENOUS BLOOD PH 7.45 (7.30-7.42)
--- NOTE | 2019-01-11 10:20 | RADIOLOGY REPORT (SQ) ---
EXAM DESCRIPTION: CT HEAD WITHOUT COMPLETED DATE/TIME: 01/11/2019 9:35 am REASON FOR STUDY: weakness COMPARISON: 03/31/2017 TECHNIQUE: Axial images acquired through the brain without intravenous contrast. Images reviewed wi th bone, brain and subdural windows. Additional sagittal and coronal reconstructions were generated. Images stored on PACS. All CT scanners at this facility use dose modulation, iterative reconstruction, and/or weight based d osing when appropriate to reduce radiation dose to as low as reasonably achievable (ALARA). [facility]: Dose Right [facility]: CareDose [facility]: Dose Right [facility]: Teradose 4D [facility]: [employer] Technologies RADIATION DOSE: CT Rad equipment meets quality standard of care and radiation dose reduction techniq ues were employed. CTDIvol: 53.2 mGy. DLP: 1070 mGy-cm. mGy. LIMITATIONS: None. FINDINGS: VENTRICLES: Normal size and contour. CEREBRUM: No masses. No hemorrhage. No midline shift. No evidence for acute infarction. Normal gra y/white matter differentiation. No areas of low density in the white matter. CEREBELLUM: No masses. No hemorrhage. No alteration of density. No evidence for acute infarction. EXTRAAXIAL SPACES: No fluid collections. No masses. ORBITS AND GLOBE: No intra- or extraconal masses. Normal contour of globe without masses. CALVARIUM: No fracture. PARANASAL SINUSES: No fluid or mucosal thickening. SOFT TISSUES: No mass or hematoma. OTHER: No other significant finding. IMPRESSION: No acute intracranial pathology. EVIDENCE OF ACUTE STROKE: NO. COMMENT: Quality ID # [id number]: Final reports with documentation of one or more dose reduction techniques (e.g., Automated exposure control, adjustment of the mA and/or kV according to patient size, use of iterative reconstruction technique) TECHNICAL DOCUMENTATION: JOB ID: [id number] [employer]- All Rights Reserved Reading location - IP/workstation name: [email or web address]
--- NOTE | 2019-01-11 10:32 | RADIOLOGY REPORT (SQ) ---
EXAM DESCRIPTION: CHEST SINGLE VIEW COMPLETED DATE/TIME: 01/11/2019 9:46 am REASON FOR STUDY: weakness COMPARISON: 03/21/2018 EXAM PARAMETERS: NUMBER OF VIEWS: One view. TECHNIQUE: Single frontal radiographic view of the chest acquired. RADIATION DOSE: NA LIMITATIONS: None. FINDINGS: LUNGS AND PLEURA: No opacities, masses or pneumothorax. No pleural effusion. MEDIASTINUM AND HILAR STRUCTURES: No masses. Contour normal. HEART AND VASCULAR STRUCTURES: Heart normal in size. Normal vasculature. BONES: No acute findings. HARDWARE: None in the chest. OTHER: No other significant finding. IMPRESSION: No acute abnormality of the lungs in AP projection. TECHNICAL DOCUMENTATION: JOB ID: [id number] [employer]- All Rights Reserved Reading location - IP/workstation name: [email or web address]
[2019-01-11 10:59] LABS: APPEARANCE,URINE CLEAR; BILIRUBIN,URINE NEGATIVE (NEGATIVE); COLOR,URINE YELLOW; GLUCOSE, URINE NEGATIVE (NEGATIVE); KETONES,URINE NEGATIVE (NEGATIVE); LEUKOCYTE ESTERASE,URINE NEGATIVE (NEGATIVE); NITRITE,URINE NEGATIVE (NEGATIVE); PROTEIN,URINE NEGATIVE (NEGATIVE); URINE SPECIFIC GRAVITY 1.019; UROBILINOGEN,URINE NEGATIVE mg/dL (<2.0)
[2019-01-11 11:10] VITALS: BP 172/86
[2019-01-11 11:14] LABS: URINE AMPHETAMINES SCREEN NEGATIVE; URINE BARBITURATES SCREEN NEGATIVE; URINE BENZODIAZEPINES SCREEN NEGATIVE; URINE COCAINE SCREEN NEGATIVE; URINE MARIJUANA (THC) SCREEN NEGATIVE; URINE METHADONE SCREEN NEGATIVE; URINE PHENCYCLIDINE SCREEN NEGATIVE
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
[2019-01-11] MEDS ORDERED: ACETAMINOPHEN 325 MG TABLET PO PRN (12:35)
[2019-01-11] MEDS ORDERED: ONDANSETRON HCL INJ/PF 4 MG/2 ML SDV IV PRN (12:35)
[2019-01-11] MEDS ORDERED: ENOXAPARIN SODIUM INJ 40 MG/0.4 ML DISP.SYRIN SUBCUT SCH (12:45)
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
--- NOTE | 2019-01-11 14:48 | EKG REPORT ---
SEVERITY:- OTHERWISE NORMAL ECG - SINUS RHYTHM LOW VOLTAGE IN FRONTAL LEADS : Confirmed by: Caryn Palacios MD 11-Jan-2019 14:47:34
--- NOTE | 2019-01-11 16:53 | Left Against Medical Advice ---
Against Medical Advice Admission Date/Time: 01/11/19 13:06 Primary Care Provider: EWA RADNLE DO Date of Patient [place]: 01/11/19 - Diagnosis: (1) TIA (transient ischemic attack) Is this a current diagnosis for this admission?: Yes (2) Hypertension Is this a current diagnosis for this admission?: Yes (3) Type 2 diabetes mellitus Is this a current diagnosis for this admission?: Yes (4) Cirrhosis of liver Is this a current diagnosis for this admission?: Yes - Summary: Summary: ANTHONY RAUSCH is a 68 year old male patient with past medical history of hypertension, type 2 diabetes mellitus, COPD, history of hep C which is cured with Harvoni, cirrhosis of the liver and history of alcoholism presented with chief complaint of weakness and difficulty speech. 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 He also endorses weakness and state of disorientation. Patient reports that he had had similar attack in the past. Patient states that he is not compliant with his blood pressure medications. Patient denies any headache, dizziness, blurry vision or any seizure activity. No history of fever, chills, chest pain, cough, palpitation or diaphoresis. His blood works are unremarkable except for leukopenia with WBC count of 2. He CT scan is negative for acute stroke. I admitted this patient for observation as a case of TIA to rule out acute ischemic stroke. About an hour after admission patient decided to sign out AGAINST MEDICAL ADVICE. He states he has important things to do at home so he wants to go home. I myself and the nurse in charge of him advised him to stay behind by mentioning that he has history of previous recurrent TIA and that he has harbingers of major strokes. Despite our advice patient left AGAINST MEDICAL ADVICE.
[2019-01-11] MEDS ORDERED: FAMOTIDINE 20 MG TABLET PO SCH (22:00)
[2019-01-12 10:21] LABS: PATH REVIEW PATHOLOGIST REVIEWED
== END 2019-01-11 14:14 | disposition left against medical advice (07) ==
LOC: ER 08:21 → EH 13:06
PROVIDERS: ADMIT Internal Medicine; ATTEND Internal Medicine
DX: G45.9 Transient cerebral ischemic attack, unspecified (principal); I10 Essential (primary) hypertension; E11.9 Type 2 diabetes mellitus without complications; K70.30 Alcoholic cirrhosis of liver without ascites; D72.819 Decreased white blood cell count, unspecified; D69.6 Thrombocytopenia, unspecified; F10.21 Alcohol dependence, in remission; Z86.19 Personal history of other infectious and parasitic diseases; Z91.14 Patient's other noncompliance with medication regimen; Z53.21 Procedure and treatment not carried out due to patient leaving prior to being seen by health care provider; Z86.73 Personal history of transient ischemic attack (TIA), and cerebral infarction without residual deficits; Z87.820 Personal history of traumatic brain injury; Z87.891 Personal history of nicotine dependence; Z98.890 Other specified postprocedural states
CPT/HCPCS: 93005; 99285; 96360; 36415; 82553; 82962; 80307 ×2; 82140; 82550; 83690; 85025; 80053; 81001; 84484; 82803; 71045; 70450; 93010; A9270; J3490; J7030

== ENCOUNTER → 2019-05-31 | Outpatient (CLI) | payer MEDICARE, MEDICAID ==
--- NOTE | 2019-05-31 15:42 | RADIOLOGY REPORT (SQ) ---
EXAM DESCRIPTION: U/S ABDOMEN LIMITED W/O DOP COMPLETED DATE/TIME: 05/31/2019 3:25 pm REASON FOR STUDY: R10.11 RIGHT UPPER QUADRANT PAIN K76.6 PORTAL HYPERTENSION R10.11 RIGHT UPPER JUANPABLO DRANT PAIN K74.69 OTHER CIRRHOSIS OF LIVER COMPARISON: 10/19/2018 TECHNIQUE: Dynamic and static grayscale images acquired of the abdomen and recorded on PACS. Additio nal selected color Doppler and spectral images recorded. LIMITATIONS: None. FINDINGS: PANCREAS: No masses. Visualized pancreatic duct normal caliber. LIVER: No masses. Echotexture normal. LIVER VASCULATURE: Normal directional flow of the main portal vein and hepatic veins. GALLBLADDER: Some small gallstones are present. There is no wall thickening or pericholecystic fluid . ULTRASOUND-DETECTED ADKINS'S SIGN: Negative. INTRAHEPATIC DUCTS AND COMMON DUCT: CBD and intrahepatic ducts normal caliber. No filling defects. INFERIOR VENA CAVA: Not imaged. AORTA: No aneurysm. RIGHT KIDNEY: Normal size, 11.6 cm. Normal echogenicity. There are some small cysts. No solid or suspicious masses. No hydronephrosis. No calcifications. PERITONEAL AND RIGHT PLEURAL SPACE: No ascites or effusions. OTHER: No other significant findings. IMPRESSION: Cholelithiasis. There is no evidence of acute cholecystitis. TECHNICAL DOCUMENTATION: JOB ID: [id number]- All Rights Reserved Reading location - IP/workstation name: [email or web address]
== END ==
LOC: RAD 14:29
PROVIDERS: ATTEND Internal Medicine Gastroenterology
DX: K76.6 Portal hypertension (principal); R10.11 Right upper quadrant pain
CPT/HCPCS: 76705

== ENCOUNTER → 2019-05-31 | Outpatient (CLI) | payer MEDICARE, MEDICAID ==
[2019-05-31 14:33] LABS: HEMATOCRIT 39.1 % (37.9-51.0); HEMOGLOBIN 12.6 g/dL (13.5-17.0); MEAN CORPUSCULAR HEMOGLOBIN 26.2 pg (27.0-33.4); MEAN CORPUSCULAR HGB CONC 32.3 g/dL (32.0-36.0); MEAN CORPUSCULAR VOLUME 81 fl (80-97); PLATELET COUNT 112 10^3/uL (150-450); RED BLOOD COUNT 4.82 10^6/uL (4.35-5.55); RED CELL DISTRIBUTION WIDTH 13.6 % (11.5-14.0); WHITE BLOOD COUNT 2.2 10^3/uL (4.0-10.5)
[2019-05-31 14:40] LABS: INTERNATIONAL RATION (INR) 1.23; PROTHROMBIN TIME 15.6 SEC (11.4-15.4)
[2019-05-31 14:53] LABS: ALKALINE PHOSPHATASE 67 U/L (38-126); ANION GAP 7 (5-19); ASPARTATE AMINO TRANSFERASE 23 U/L (17-59); BILIRUBIN,DIRECT 0.2 mg/dL (0.0-0.4); BILIRUBIN,TOTAL 0.3 mg/dL (0.2-1.3); BLOOD UREA NITROGEN 26 mg/dL (7-20); CALCIUM 9.6 mg/dL (8.4-10.2); CARBON DIOXIDE 30 mmol/L (22-30); CHLORIDE 105 mmol/L (98-107); GLUCOSE 154 mg/dL (75-110); TOTAL PROTEIN 6.7 g/dL (6.3-8.2)
== END ==
LOC: LAB 14:04
PROVIDERS: ATTEND Internal Medicine Gastroenterology
DX: B18.2 Chronic viral hepatitis C (principal); R10.12 Left upper quadrant pain
CPT/HCPCS: 36415; 80048; 80076; 83690; 85027; 85610

== ENCOUNTER 2019-07-24 15:39 | Day surgery (SDC) | payer MEDICARE, MEDICAID ==
[~2019-07-24 15:39] MED LIST changes: -EPINEPHRINE INJ 1 MG/10 ML DISP.SYRIN ONE; -FLUMAZENIL INJ 0.5 MG/5 ML VIAL ONE; -GLUCAGON,HUMAN RECOMB 1 MG INJ ONE; +MIDAZOLAM 2 MG/2 ML INJ ONE; -NALOXONE HCL INJ/PF 0.4 MG/1 ML SDV ONE
[2019-07-24] MEDS ORDERED: GLUCAGON,HUMAN RECOMB 1 MG INJ ONE (15:40)
[2019-07-24] MEDS ORDERED: FLUMAZENIL INJ 0.5 MG/5 ML VIAL ONE (15:40)
[2019-07-24] MEDS ORDERED: NALOXONE HCL INJ/PF 0.4 MG/1 ML SDV ONE (15:40)
[2019-07-24] MEDS ORDERED: EPINEPHRINE INJ 1 MG/10 ML DISP.SYRIN ONE (15:40)
--- NOTE | 2019-07-24 17:32 | Operative Report ---
Operative Report DATE OF SURGERY: 07/24/19 Operative Report: Pre-op diagnosis: Cirrhosis with history of esophageal varices Post-op diagnosis: Moderate size distal esophageal varices Surgery: Esophagogastroduodenoscopy with biopsy and variceal rubber banding Medications: Versed 2mg Fentanyl 100mcg IV push Tissue removed: Antral and gastric body biopsy for pathology Procedure: After informed consent obtained from patient, the throat was sprayed with Hurricane and conscious sedation was achieved. The upper endoscope was inserted into the esophagus under direct vision and advanced into the stomach. The duodenum was entered and examined to the second part. Endoscope was then slowly pulled out of the patient as the mucosa was examined into details. Patient tolerated procedure well. Findings Esophagus: 2 columns of small to moderate-sized varices were noted in the distal esophagus consistent with a grade F2. 4 rubber bands were applied Antrum: Normal Body: Normal Fundus: Normal Duodenum first part: Normal Duodenum second part: Normal Plan: Await pathology. Repeat EGD in 6 months OPERATION: .
[2019-07-24 18:16] VITALS: BP 135/72
== END 2019-07-24 18:15 | disposition home or self-care (01) ==
LOC: END 15:39
PROVIDERS: ATTEND Internal Medicine Gastroenterology
DX: K29.50 Unspecified chronic gastritis without bleeding (principal); I85.00 Esophageal varices without bleeding; K74.60 Unspecified cirrhosis of liver; B18.2 Chronic viral hepatitis C; K76.6 Portal hypertension; Z79.84 Long term (current) use of oral hypoglycemic drugs; Z79.899 Other long term (current) drug therapy; Z86.73 Personal history of transient ischemic attack (TIA), and cerebral infarction without residual deficits
CPT/HCPCS: 43239; 82962; 88342 ×2; 88305 ×2; J2250; J3010; 43235; J0171; J1200; J1610; J2310; J2405; J3490

== ENCOUNTER 2019-10-12 09:24 | Emergency (ER) | payer MEDICARE, MEDICAID ==
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
[2019-10-12 14:52] VITALS: BP 113/70
== END 2019-10-12 14:49 | disposition home or self-care (01) ==
LOC: ER 09:24
DX: K64.8 Other hemorrhoids (principal); K76.9 Liver disease, unspecified; Z79.899 Other long term (current) drug therapy; I10 Essential (primary) hypertension; J44.9 Chronic obstructive pulmonary disease, unspecified; E11.9 Type 2 diabetes mellitus without complications
CPT/HCPCS: 99282

== ENCOUNTER → 2019-12-06 | Outpatient (CLI) | payer MEDICARE, MEDICAID ==
--- NOTE | 2019-12-06 11:17 | RADIOLOGY REPORT (SQ) ---
EXAM DESCRIPTION: U/S ABDOMEN LIMITED W/O DOP COMPLETED DATE/TIME: 12/06/2019 10:54 am REASON FOR STUDY: K74.69 OTHER CIRRHOSIS OF LIVER K74.69 OTHER CIRRHOSIS OF LIVER COMPARISON: None. TECHNIQUE: Dynamic and static grayscale images acquired of the abdomen and recorded on PACS. Additio nal selected color Doppler and spectral images recorded. LIMITATIONS: None. FINDINGS: PANCREAS: No masses. Visualized pancreatic duct normal caliber. LIVER: Normal size. Diffuse coarse hepatic echotexture. No masses or dilated ducts. LIVER VASCULATURE: Normal directional flow of the main portal vein and hepatic veins. GALLBLADDER: No stones. Normal wall thickness. No pericholecystic fluid. ULTRASOUND-DETECTED ADKINS'S SIGN: Negative. INTRAHEPATIC DUCTS AND COMMON DUCT: CBD and intrahepatic ducts normal caliber. No filling defects. INFERIOR VENA CAVA: Normal flow. AORTA: No aneurysm. RIGHT KIDNEY: Normal size. There are 2 cysts measuring up to 3.2 cm. No solid or suspicious masses . No hydronephrosis. No calcifications. PERITONEAL AND RIGHT PLEURAL SPACE: No ascites or effusions. OTHER: No other significant findings. IMPRESSION: Cirrhosis. No ascites. TECHNICAL DOCUMENTATION: JOB ID: [id number] 2010 [employer]- All Rights Reserved Reading location - IP/workstation name: [email or web address]
== END ==
LOC: WI 10:05
PROVIDERS: ATTEND Internal Medicine Gastroenterology
DX: K74.69 Other cirrhosis of liver (principal)
CPT/HCPCS: 76705

== ENCOUNTER 2019-12-24 10:54 | Observation (INO) | payer MEDICARE, MEDICAID ==
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
--- NOTE | 2019-12-24 11:18 | ER Document Report ---
Doctor's Note Notes: 12/24/19 11:17 Radiologist called, CT negative for acute stroke.
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
--- NOTE | 2019-12-24 11:36 | RADIOLOGY REPORT (SQ) ---
EXAM DESCRIPTION: CHEST SINGLE VIEW COMPLETED DATE/TIME: 12/24/2019 11:24 am REASON FOR STUDY: left arm numbness, altered mental status COMPARISON: 01/11/2019 EXAM PARAMETERS: NUMBER OF VIEWS: One view. TECHNIQUE: Single frontal radiographic view of the chest acquired. RADIATION DOSE: NA LIMITATIONS: None. FINDINGS: LUNGS AND PLEURA: No opacities, masses or pneumothorax. No pleural effusion. MEDIASTINUM AND HILAR STRUCTURES: No masses. Contour normal. HEART AND VASCULAR STRUCTURES: Heart normal in size. Normal vasculature. BONES: No acute findings. HARDWARE: None in the chest. OTHER: No other significant finding. IMPRESSION: NO ACUTE RADIOGRAPHIC FINDING IN THE CHEST. TECHNICAL DOCUMENTATION: JOB ID: [id number] 2010 [employer]- All Rights Reserved Reading location - IP/workstation name: [email or web address]
[2019-12-24 11:44] LABS: ABSOLUTE EOSINOPHILS # (AUTO) 0.1 10^3/uL (0.0-0.6); ABSOLUTE LYMPHOCYTES (AUTO) 0.5 10^3/uL (0.5-4.7); ABSOLUTE MONOCYTES (AUTO) 0.4 10^3/uL (0.1-1.4); ABSOLUTE NEUT (AUTO) 2.1 10^3/uL (1.7-8.2); BASOPHILS % (AUTO) 0.6 % (0-2); EOSINOPHILS % (AUTO) 4.7 % (0-6); HEMATOCRIT 42.9 % (37.9-51.0); HEMOGLOBIN 14.1 g/dL (13.5-17.0); LYMPHOCYTES % (AUTO) 14.9 % (13-45); MEAN CORPUSCULAR HEMOGLOBIN 27.4 pg (27.0-33.4); MEAN CORPUSCULAR HGB CONC 32.9 g/dL (32.0-36.0); MEAN CORPUSCULAR VOLUME 83 fl (80-97); MONOCYTES % (AUTO) 13.5 % (3-13); PLATELET COUNT 106 10^3/uL (150-450); RED BLOOD COUNT 5.16 10^6/uL (4.35-5.55); RED CELL DISTRIBUTION WIDTH 14.2 % (11.5-14.0); SEGMENTED NEUTROPHILS % (AUTO) 66.3 % (42-78); TOTAL CELLS COUNTED % (AUTO) 100 %; WHITE BLOOD COUNT 3.1 10^3/uL (4.0-10.5)
[2019-12-24 11:46] LABS: INTERNATIONAL RATION (INR) 1.29
[2019-12-24 11:47] LABS: PARTIAL THROMBOPLASTIN TIME 28.7 SEC (23.5-35.8)
[2019-12-24 11:49] LABS: PROTHROMBIN TIME 16.2 SEC (11.4-15.4)
[2019-12-24 12:07] LABS: ALBUMIN 4.5 g/dL (3.5-5.0); ALKALINE PHOSPHATASE 65 U/L (38-126); ANION GAP 8 (5-19); ASPARTATE AMINO TRANSFERASE 32 U/L (17-59); BILIRUBIN,TOTAL 1.2 mg/dL (0.2-1.3); BLOOD UREA NITROGEN 27 mg/dL (7-20); CALCIUM 9.4 mg/dL (8.4-10.2); CARBON DIOXIDE 31 mmol/L (22-30); CHLORIDE 104 mmol/L (98-107); CREATINE KINASE 48 U/L (55-170); GLUCOSE 140 mg/dL (75-110); TOTAL PROTEIN 7.4 g/dL (6.3-8.2)
[2019-12-24 12:19] LABS: CREATINE KINASE MB 2.56 ng/mL (<4.55)
[2019-12-24 12:20] LABS: TROPONIN I < 0.012 ng/mL
--- NOTE | 2019-12-24 12:57 | RADIOLOGY REPORT (SQ) ---
EXAM DESCRIPTION: CTA HEAD COMPLETED DATE/TIME: 12/24/2019 12:33 pm REASON FOR STUDY: CVA? COMPARISON: Same day CT TECHNIQUE: Post IV contrast scanning, thin section axial imaging through the brain to evaluate the a rterial structures. Source and MIP images are saved and reviewed on PACS. Advanced 3D imaging as volume-rendering, MIPs, SSD performed? yes All CT scanners at this facility use dose modulation, iterative reconstruction, and/or weight based d osing when appropriate to reduce radiation dose to as low as reasonably achievable (ALARA). [facility]: Dose Right [facility]: CareDose [facility]: Dose Right [facility]: Teradose 4D [facility]: [employer] CONTRAST TYPE AND DOSE: contrast/concentration: Isovue 350.00 mg/ml; Total Contrast Delivered: 70.0 ml; Total Saline Delivered: 56.0 ml RENAL FUNCTION: Creatinine 0.98 LIMITATIONS: None. FINDINGS: [place] OF SM[place]: The anterior, middle, posterior cerebral arteries are all patent. No ev idence of aneurysm or focal stenosis. POSTERIOR CIRCULATION: The distal vertebral arteries are patent as is the basilar artery. No aneurysm . BRAIN: No gross enhancing lesions as visualized. The superior cerebral hemispheres are not included in the field of view. BONES: Intact as visualized. SINUSES: No fluid or mucosal thickening. OTHER: No other significant finding. IMPRESSION: CTA head: No evidence of large vessel occlusion, aneurysm or high-grade stenosis. TECHNICAL DOCUMENTATION: JOB ID: [id number] Quality ID # [id number]: Final reports with documentation of one or more dose reduction techniques (e.g., Au tomated exposure control, adjustment of the mA and/or kV according to patient size, use of iterative reconstruction technique) 2010 [employer]- All Rights Reserved Reading location - IP/workstation name: [email or web address]
--- NOTE | 2019-12-24 13:04 | RADIOLOGY REPORT (SQ) ---
EXAM DESCRIPTION: CTA NECK COMPLETED DATE/TIME: 12/24/2019 12:33 pm REASON FOR STUDY: cva? COMPARISON: None. TECHNIQUE: Axial dynamic scanning technique with dynamic contrast enhancement through the extra-crack off person nial carotid and vertebral arteries. Multiplanar reconstruction. 3-D MIPS and Volume-rendered imag es acquired at the workstation and saved to PACS. Images are reviewed in soft tissue, bone, lung w indows. All CT scanners at this facility use dose modulation, iterative reconstruction, and/or weight based d osing when appropriate to reduce radiation dose to as low as reasonably achievable (ALARA). [facility]: Dose Right [facility]: CareDose [facility]: Dose Right [facility]: Teradose 4D [facility]: [employer] CONTRAST TYPE AND DOSE: See CTA head RENAL FUNCTION: See CTA head LIMITATIONS: None. FINDINGS: AORTIC ARCH: Normal three-vessel origin. Bilateral subclavian arteries are patent. No d issection. RIGHT CAROTIDS: Patent common, internal and external carotid arteries without suggestion of significa nt stenosis or irregular plaque. Minimal calcified plaque at the bulb. No dissection. RIGHT VERTEBRAL: Patent. No dissection. Diminutive caliber of the V4 segment. LEFT CAROTIDS: Patent common, internal and external carotid arteries without suggestion of significan t stenosis or irregular plaque. Minimal calcified No dissection. LEFT VERTEBRAL: Patent. No dissection. OTHER: Mild multilevel degenerative changes of the cervical spine with disc height loss and osteophyt osis. OTHER: 3-D reconstructions confirm findings. IMPRESSION: CTA neck: No evidence of large vessel occlusion, high-grade stenosis or dissection. COMMENT: Quality ID #[id number]: Measurements of distal internal carotid diameter were used as the denomina tor for stenosis measurement. TECHNICAL DOCUMENTATION: JOB ID: [id number] Quality ID # [id number]: Final reports with documentation of one or more dose reduction techniques (e.g., Au tomated exposure control, adjustment of the mA and/or kV according to patient size, use of iterative reconstruction technique) 2010 [employer]- All Rights Reserved Reading location - IP/workstation name: [email or web address]
[2019-12-24] MEDS ORDERED: OXYCODONE-ACETAMINOPHEN 5-325 MG TABLET PO PRN (15:18)
[2019-12-24] MEDS ORDERED: MAG HYDROX/AL HYDROX/SIMETH SUSP 30 ML UDCUP PO PRN (15:18)
[2019-12-24] MEDS ORDERED: ACETAMINOPHEN 325 MG TABLET PO PRN (15:18)
[2019-12-24] MEDS ORDERED: ONDANSETRON 4 MG TAB.RAPDIS PO PRN (15:18)
[2019-12-24] MEDS ORDERED: ONDANSETRON HCL INJ/PF 4 MG/2 ML SDV IV PRN (15:18)
[2019-12-24] MEDS ORDERED: HYDRALAZINE HCL INJ/PF 20 MG/1 ML SDV IV PRN (15:47)
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
[2019-12-24] MEDS: METFORMIN HCL 500 MG TABLET PO SCH (19:01)
[2019-12-24] MEDS: RIFAXIMIN 550 MG TABLET PO SCH (19:03)
[2019-12-25] MEDS ORDERED: PANTOPRAZOLE SODIUM 20 MG TABLET.DR PO SCH (06:00)
[2019-12-25 06:35] LABS: ANION GAP 10 (5-19); BLOOD UREA NITROGEN 30 mg/dL (7-20); CALCIUM 9.2 mg/dL (8.4-10.2); CARBON DIOXIDE 26 mmol/L (22-30); CHLORIDE 105 mmol/L (98-107); GLUCOSE 104 mg/dL (75-110); POTASSIUM 3.9 mmol/L (3.6-5.0)
[2019-12-25 06:36] LABS: ABSOLUTE EOSINOPHILS # (AUTO) 0.2 10^3/uL (0.0-0.6); ABSOLUTE LYMPHOCYTES (AUTO) 0.6 10^3/uL (0.5-4.7); ABSOLUTE MONOCYTES (AUTO) 0.4 10^3/uL (0.1-1.4); ABSOLUTE NEUT (AUTO) 1.5 10^3/uL (1.7-8.2); EOSINOPHILS % (AUTO) 7.1 % (0-6); HEMATOCRIT 39.5 % (37.9-51.0); HEMOGLOBIN 13.3 g/dL (13.5-17.0); LYMPHOCYTES % (AUTO) 21.7 % (13-45); MEAN CORPUSCULAR HEMOGLOBIN 27.7 pg (27.0-33.4); MEAN CORPUSCULAR HGB CONC 33.7 g/dL (32.0-36.0); MEAN CORPUSCULAR VOLUME 82 fl (80-97); MONOCYTES % (AUTO) 15.3 % (3-13); RED BLOOD COUNT 4.81 10^6/uL (4.35-5.55); SEGMENTED NEUTROPHILS % (AUTO) 54.9 % (42-78); TOTAL CELLS COUNTED % (AUTO) 100 %; WHITE BLOOD COUNT 2.6 10^3/uL (4.0-10.5)
[2019-12-25 06:57] LABS: PLATELET COUNT 93 10^3/uL (150-450)
[2019-12-25] MEDS ORDERED: HYDROCHLOROTHIAZIDE 12.5 MG TABLET PO SCH (08:00)
[2019-12-25] MEDS: METFORMIN HCL 500 MG TABLET PO SCH ×2 (09:22→16:12)
[2019-12-25] MEDS: RIFAXIMIN 550 MG TABLET PO SCH ×2 (09:24→18:34)
[2019-12-25] MEDS: ASPIRIN 81 MG TABLET, ENT COATED PO SCH ×2 (09:24→09:36)
[2019-12-25] MEDS ORDERED: DOCUSATE SODIUM 100 MG CAPSULE PO SCH (10:00)
[2019-12-25] MEDS ORDERED: LACTULOSE SYRUP 20 GM/30 ML UDCUP PO SCH (10:00)
--- NOTE | 2019-12-25 12:03 | EKG REPORT ---
SEVERITY:- OTHERWISE NORMAL ECG - SINUS RHYTHM LOW VOLTAGE IN FRONTAL LEADS : Confirmed by: Jun Guzman 25-Dec-2019 12:02:44
[2019-12-25] MEDS ORDERED: ASPIRIN 81 MG TABLET, ENT COATED PO ONE (16:00)
[2019-12-25 18:24] VITALS: BP 143/92
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
== END 2019-12-25 18:43 | disposition home or self-care (01) ==
LOC: ER 10:54 → EH 14:17 → INTOOBSV 14:17 → 3W 15:55
PROVIDERS: ADMIT Family Medicine; ATTEND Family Medicine
DX: K70.30 Alcoholic cirrhosis of liver without ascites (principal); E11.40 Type 2 diabetes mellitus with diabetic neuropathy, unspecified; G45.9 Transient cerebral ischemic attack, unspecified; I10 Essential (primary) hypertension; K72.90 Hepatic failure, unspecified without coma; R27.0 Ataxia, unspecified; D72.829 Elevated white blood cell count, unspecified; G25.81 Restless legs syndrome; H02.402 Unspecified ptosis of left eyelid; M19.90 Unspecified osteoarthritis, unspecified site; R41.0 Disorientation, unspecified; Z87.441 Personal history of nephrotic syndrome; Z79.899 Other long term (current) drug therapy; Z87.820 Personal history of traumatic brain injury; Z79.84 Long term (current) use of oral hypoglycemic drugs
CPT/HCPCS: 93005; 99285; 36415 ×2; 82553; 82962; 82140; 82550; 83735; 85025 ×2; 85610; 85730; 80048; 80053; 84484; 71045; 70450; 70496; 70498; 93010; G0378 ×3; A9270 ×4

== ENCOUNTER 2020-04-25 13:28 | Day surgery (SDC) | payer MEDICARE, MEDICAID ==
[2020-04-22 11:04] LABS: ABSOLUTE EOSINOPHILS # (AUTO) 0.1 10^3/uL (0.0-0.6); ABSOLUTE LYMPHOCYTES (AUTO) 0.4 10^3/uL (0.5-4.7); ABSOLUTE MONOCYTES (AUTO) 0.4 10^3/uL (0.1-1.4); ABSOLUTE NEUT (AUTO) 1.6 10^3/uL (1.7-8.2); BASOPHILS % (AUTO) 0.7 % (0-2); HEMATOCRIT 40.2 % (37.9-51.0); HEMOGLOBIN 13.1 g/dL (13.5-17.0); LYMPHOCYTES % (AUTO) 15.9 % (13-45); MEAN CORPUSCULAR HEMOGLOBIN 27.2 pg (27.0-33.4); MEAN CORPUSCULAR HGB CONC 32.5 g/dL (32.0-36.0); MEAN CORPUSCULAR VOLUME 84 fl (80-97); MONOCYTES % (AUTO) 15.3 % (3-13); RED BLOOD COUNT 4.81 10^6/uL (4.35-5.55); RED CELL DISTRIBUTION WIDTH 15.1 % (11.5-14.0); SEGMENTED NEUTROPHILS % (AUTO) 63.1 % (42-78); TOTAL CELLS COUNTED % (AUTO) 100 %; WHITE BLOOD COUNT 2.5 10^3/uL (4.0-10.5)
[2020-04-22 11:27] LABS: ANION GAP 8 (5-19); BLOOD UREA NITROGEN 28 mg/dL (7-20); CALCIUM 9.2 mg/dL (8.4-10.2); CARBON DIOXIDE 29 mmol/L (22-30); CHLORIDE 101 mmol/L (98-107); GLUCOSE 303 mg/dL (75-110); POTASSIUM 4.2 mmol/L (3.6-5.0)
[2020-04-22 11:37] LABS: PLATELET COUNT 87 10^3/uL (150-450)
[2020-04-25] MEDS ORDERED: PROPOFOL INJ 200 MG/20 ML VIAL IV ONE (13:36)
[2020-04-25] MEDS ORDERED: EPINEPHRINE INJ/PF 1 MG/1 ML AMPULE ONE (14:26)
[2020-04-25] MEDS ORDERED: EPINEPHRINE INJ 1 MG/10 ML DISP.SYRIN ONE ×2 (14:28→14:30)
--- NOTE | 2020-04-25 14:42 | Operative Report ---
Operative Report DATE OF SURGERY: 04/25/20 Operative Report: Pre-op diagnosis: History of esophageal varices with previous rubber banding Post-op diagnosis: 1. Mild antral gastritis 2. Very small distal esophageal varices Surgery: Esophagogastroduodenoscopy with biopsy Medications: As per anesthesia Tissue removed: Antral and gastric body biopsy for pathology Procedure: After informed consent obtained from patient, the throat was sprayed with Hurricane and conscious sedation was achieved. The upper endoscope was inserted into the esophagus under direct vision and advanced into the stomach. The duodenum was entered and examined to the second part. Endoscope was then slowly pulled out of the patient as the mucosa was examined into details. Patient tolerated procedure well. Findings Esophagus: There was evidence of scarring noted in the distal esophagus. 1 small column of varix was identified and was not appropriate for rubber banding. Antrum: Mild erythema Body: Normal Fundus: Normal Duodenum first part: Normal Duodenum second part: Normal Plan: Await pathology. Repeat EGD in 6 months OPERATION: .
[2020-04-25 16:00] VITALS: BP 128/78
== END 2020-04-25 16:01 | disposition home or self-care (01) ==
LOC: END 13:28
PROVIDERS: ATTEND Internal Medicine Gastroenterology
DX: K29.50 Unspecified chronic gastritis without bleeding (principal); I85.00 Esophageal varices without bleeding; K74.60 Unspecified cirrhosis of liver; B18.2 Chronic viral hepatitis C; Z79.899 Other long term (current) drug therapy; Z03.818 Encounter for observation for suspected exposure to other biological agents ruled out; Z09 Encounter for follow-up examination after completed treatment for conditions other than malignant neoplasm; Z87.19 Personal history of other diseases of the digestive system; I10 Essential (primary) hypertension; E11.9 Type 2 diabetes mellitus without complications; Z86.73 Personal history of transient ischemic attack (TIA), and cerebral infarction without residual deficits; Z85.820 Personal history of malignant melanoma of skin
CPT/HCPCS: 43239; 36415; 82962; 85025; 80048; 88305 ×2; 00731; U0003; J2704; C9803; 731; 87635; J0171